=== PATIENT | male | born 1950 | race Hispanic/Latino ===

== ENCOUNTER 2016-07-19 11:09 | Outpatient (CLI) | payer MEDICARE ==
[2016-07-19 12:07] LABS: #Basophils 0.1 thou/uL (0.0-0.2); #Lymphocytes 1.8 thou/uL (1.20-3.40); #Monocytes 0.5 thou/uL (0.11-0.59); %Basophils 1.5 % (0.0-1.0); %Eosinophils 0.7 % (0.0-10.0); %Lymphocytes 27.7 % (21.0-51.0); %Monocytes 8.2 % (0.0-10.0); Red Blood Cell (RBC) Count 4.75 mill/uL (4.70-6.10); White Blood Cell (WBC) Count 6.4 thou/uL (4.8-10.8)
[2016-07-19 12:11] LABS: Bilirubin Negative (Negative); Blood, Urine Negative (Negative); Glucose, Urine (Dipstick) Negative (Negative); Ketone, Urine Negative (Negative); Nitrite Negative (Negative); Protein, Urine (Dipstick) Negative (Neg-Trace); Urobilinogen 0.2 mg/dL (0.2-1.0)
[2016-07-19 12:22] LABS: Hemoglobin A1c 4.9 % (4.0-6.0)
[2016-07-19 12:24] LABS: Bacteria/HPF Rare-Few HPF (None Seen); RBC/HPF 0-3 HPF (0-3); Squamous Epithelial 0-3 HPF (0-3); WBC/HPF 0-3 HPF (0-3)
[2016-07-19 12:28] LABS: ALT (SGPT) 26 U/L (0-55); AST (SGOT) 28 U/L (5-34); Alkaline Phosphatase 61 U/L (40-150); Anion Gap 15 mmol/L (10-20); BUN (Urea Nitrogen) 20 mg/dL (8.4-25.7); Bilirubin, Direct 0.3 mg/dL (0.1-0.3); Bilirubin, Total 0.9 mg/dL (0.2-1.2); Calc. Creatinine Clearance 0 mL/min (70-130); Calcium 9.3 mg/dL (7.8-10.44); Carbon Dioxide 25 mmol/L (23-31); Chloride 105 mmol/L (98-107); Estimated GFR-MDRD Greater than 90; LDL Cholesterol, Calculated 146 mg/dL; Protein, Total 7.1 g/dL (5.8-8.1)
== END 2016-07-19 11:10 | disposition home or self-care (01) ==
LOC: NAV LAB 11:09
PROVIDERS: ATTEND Family Medicine
DX: I10 Essential (primary) hypertension (principal); E78.5 Hyperlipidemia, unspecified; G89.29 Other chronic pain; N41.9 Inflammatory disease of prostate, unspecified; N40.0 Benign prostatic hyperplasia without lower urinary tract symptoms; M51.36 Other intervertebral disc degeneration, lumbar region
CPT/HCPCS: 36415; 80048; 80061; 80076; 81001; 83036; 84443; 85025

== ENCOUNTER 2016-08-06 13:21 | Outpatient (CLI) | payer MEDICARE | END 2016-08-06 13:22 | disposition home or self-care (01) | LOC: NAVSJIPCSP 13:21 | PROVIDERS: ATTEND Family Medicine | DX: Z00.00 Encounter for general adult medical examination without abnormal findings (principal) | CPT/HCPCS: 36415; 86803; 87389 ==

== ENCOUNTER 2017-02-03 11:38 | Outpatient (CLI) | payer MEDICARE ==
[2017-02-03 14:09] LABS: #Eosinphils 0.2 thou/uL (0.0-0.7); #Lymphocytes 1.7 thou/uL (1.20-3.40); #Monocytes 0.6 thou/uL (0.11-0.59); #Neutrophils 3.1 thou/uL (1.40-6.50); %Basophils 0.8 % (0.0-1.0); %Eosinophils 3.6 % (0.0-10.0); %Lymphocytes 29.7 % (21.0-51.0); %Monocytes 10.8 % (0.0-10.0); Hemoglobin 15.2 g/dL (14.0-18.0); Mean Corpuscular HGB CONC 32.4 g/dL (32.0-36.0); Mean Corpuscular Hemoglobin 30.4 pg (27.0-31.0); Mean Corpuscular Volume 93.9 fl (80.0-94.0); Mean Platelet Volume 7.1 fL (7.4-10.4); Platelet Count 177 thou/uL (130-400); RBC Distribution Width 11.6 % (11.5-14.5); Red Blood Cell (RBC) Count 5.02 mill/uL (4.70-6.10); White Blood Cell (WBC) Count 5.6 thou/uL (4.8-10.8)
[2017-02-03 14:39] LABS: Hemoglobin A1c 5.2 % (4.0-6.0)
[2017-02-03 14:40] LABS: ALT (SGPT) 32 U/L (8-55); AST (SGOT) 36 U/L (5-34); Albumin 4.1 g/dL (3.4-4.8); Alkaline Phosphatase 67 U/L (40-150); Anion Gap 15 mmol/L (10-20); BUN (Urea Nitrogen) 14 mg/dL (8.4-25.7); Bilirubin, Direct 0.4 mg/dL (0.1-0.3); Calc. Creatinine Clearance 0 mL/min (70-130); Calcium 9.3 mg/dL (7.8-10.44); Carbon Dioxide 27 mmol/L (23-31); Cardiac Risk 3.2 (Less than 4.5); Chloride 103 mmol/L (98-107); Cholesterol 129 mg/dl (< 200 Desired); Estimated GFR-MDRD Greater than 90; Glucose 100 mg/dL (80-115); HDL Cholesterol 40 mg/dL (>60 Neg Risk); LDL Cholesterol, Calculated 66 mg/dL; Potassium 4.4 mmol/L (3.5-5.1); Protein, Total 7.1 g/dL (5.8-8.1); Sodium 141 mmol/L (136-145); Triglycerides 116 mg/dL (Less than 150)
== END 2017-02-03 11:39 | disposition home or self-care (01) ==
LOC: NAVSJIPCSP 11:38
PROVIDERS: ATTEND Family Medicine
DX: E78.5 Hyperlipidemia, unspecified (principal); I10 Essential (primary) hypertension; E29.1 Testicular hypofunction; Z79.899 Other long term (current) drug therapy
CPT/HCPCS: 36415; 80048; 80061; 80076; 83036; 84403; 84443; 85025

== ENCOUNTER 2017-02-12 15:12 | Outpatient (CLI) | payer MEDICARE, OTHER ==
[2017-02-12 22:15] LABS: Bilirubin Negative (Negative); Blood, Urine Negative (Negative); Clarity Clear (Clear); Glucose, Urine (Dipstick) Negative (Negative); Leukocyte Negative (Negative); Nitrite Negative (Negative); Protein, Urine (Dipstick) Negative (Neg-Trace); Specific Gravity, Urine 1.015 (1.005-1.030); Urobilinogen 0.2 mg/dL (0.2-1.0)
[2017-02-12 22:23] LABS: Bacteria/HPF None Seen HPF (None Seen); RBC/HPF None Seen HPF (0-3); Squamous Epithelial None Seen HPF (0-3); WBC/HPF None Seen HPF (0-3)
== END 2017-02-12 15:13 | disposition home or self-care (01) ==
LOC: NAV LAB 15:12
PROVIDERS: ATTEND Urology
DX: R35.0 Frequency of micturition (principal)
CPT/HCPCS: 81001; 87086